=== PATIENT | male | born 1950 | race Caucasian/White ===

== ENCOUNTER → 2016-07-12 | Outpatient (CLI) | payer MEDICARE, OTHER ==
[~2016-07-12] VITALS: Ht 180.3 cm; Wt 90.6 kg
[~2016-07-12] MED LIST: ALLO300T2 PO; ASPI-556 PO; BUME1TAB12 PO; CALC0.253 PO; CARV6 PO; COLL30OI TP; DIGO125T PO; DOCU250C91 PO; DOXY100C PO; GABA-531 PO; INSLAN SQ; INSNOV SQ; INSU100C3 SQ; INSU100V12 SQ; LACHLOT TP; LEVO25TA9 PO; MEXI150 PO; MULT1CAP32 PO; PANT40TA25 PO; TAMS0.4C32 PO; VITAD1000 PO; WARF2 PO; WARF5 PO
[2016-07-12 13:44] VITALS: BP 90/60
[2016-07-12 14:47] LABS: GLUCOSE COMMENT 1 Doctor Notified; GLUCOSE,POINT OF CARE 87 MG/DL (70-110)
== END | disposition home or self-care (01) ==
LOC: HBOWC 12:23
PROVIDERS: ATTEND Emergency Medicine
DX: E11.622 Type 2 diabetes mellitus with other skin ulcer (principal); L97.821 Non-pressure chronic ulcer of other part of left lower leg limited to breakdown of skin; E11.621 Type 2 diabetes mellitus with foot ulcer; L97.411 Non-pressure chronic ulcer of right heel and midfoot limited to breakdown of skin; E11.51 Type 2 diabetes mellitus with diabetic peripheral angiopathy without gangrene; I87.2 Venous insufficiency (chronic) (peripheral); L84 Corns and callosities; L60.3 Nail dystrophy; Z87.891 Personal history of nicotine dependence
CPT/HCPCS: 82962; 97597

== ENCOUNTER → 2016-07-19 | Outpatient (CLI) | payer MEDICARE, OTHER ==
[2016-07-19 09:34] VITALS: BP 102/59
== END | disposition home or self-care (01) ==
LOC: HBOWC 08:48
PROVIDERS: ATTEND Emergency Medicine
DX: E11.621 Type 2 diabetes mellitus with foot ulcer (principal); I87.2 Venous insufficiency (chronic) (peripheral); L97.821 Non-pressure chronic ulcer of other part of left lower leg limited to breakdown of skin; L97.411 Non-pressure chronic ulcer of right heel and midfoot limited to breakdown of skin; L97.521 Non-pressure chronic ulcer of other part of left foot limited to breakdown of skin; L60.3 Nail dystrophy; L84 Corns and callosities; E11.51 Type 2 diabetes mellitus with diabetic peripheral angiopathy without gangrene; I50.9 Heart failure, unspecified; Z87.891 Personal history of nicotine dependence
CPT/HCPCS: 97597

== ENCOUNTER → 2016-08-02 | Outpatient (CLI) | payer MEDICARE, OTHER ==
[2016-08-02 08:44] VITALS: BP 105/66
== END | disposition home or self-care (01) ==
LOC: HBOWC 07:28
PROVIDERS: ATTEND Emergency Medicine
DX: E11.622 Type 2 diabetes mellitus with other skin ulcer (principal); L97.821 Non-pressure chronic ulcer of other part of left lower leg limited to breakdown of skin; E11.621 Type 2 diabetes mellitus with foot ulcer; L97.411 Non-pressure chronic ulcer of right heel and midfoot limited to breakdown of skin; I87.2 Venous insufficiency (chronic) (peripheral); E11.51 Type 2 diabetes mellitus with diabetic peripheral angiopathy without gangrene; L84 Corns and callosities; L60.3 Nail dystrophy; Z87.891 Personal history of nicotine dependence
CPT/HCPCS: 87070; 87205; 97597

== ENCOUNTER → 2016-11-02 | Outpatient (CLI) | payer MEDICARE, OTHER ==
[~2016-11-02] VITALS: Ht 180.3 cm; Wt 98.4 kg
[2016-11-02 10:30] VITALS: BP 102/76
== END | disposition home or self-care (01) ==
LOC: HBOWC 09:42
PROVIDERS: ATTEND Emergency Medicine
DX: E11.621 Type 2 diabetes mellitus with foot ulcer (principal); L97.412 Non-pressure chronic ulcer of right heel and midfoot with fat layer exposed; E11.622 Type 2 diabetes mellitus with other skin ulcer; L97.821 Non-pressure chronic ulcer of other part of left lower leg limited to breakdown of skin; E11.51 Type 2 diabetes mellitus with diabetic peripheral angiopathy without gangrene; L84 Corns and callosities; L60.3 Nail dystrophy; I50.9 Heart failure, unspecified; Z87.891 Personal history of nicotine dependence
CPT/HCPCS: 11720; 87070; 87205; 97597

== ENCOUNTER → 2016-11-09 | Outpatient (CLI) | payer MEDICARE, OTHER ==
[~2016-11-09] MED LIST changes: -ASPI-556 PO; -BUME1TAB12 PO; -CARV6 PO; -COLL30OI TP; -DIGO125T PO; -INSLAN SQ; -INSU100C3 SQ; -LACHLOT TP; +LIDOCAINE HCL 2% 5 ML JELLY TP ONE; -MEXI150 PO; -PANT40TA25 PO
[2016-11-09 09:32] VITALS: BP 97/72
== END | disposition home or self-care (01) ==
LOC: HBOWC 07:41
PROVIDERS: ATTEND Emergency Medicine
DX: E11.621 Type 2 diabetes mellitus with foot ulcer (principal); S81.802A Unspecified open wound, left lower leg, initial encounter; S81.801A Unspecified open wound, right lower leg, initial encounter; X58.XXXA Exposure to other specified factors, initial encounter; Y93.89 Activity, other specified; Y92.89 Other specified places as the place of occurrence of the external cause; Y99.8 Other external cause status

== ENCOUNTER → 2016-11-23 | Outpatient (CLI) | payer MEDICARE, OTHER ==
[~2016-11-23] MED LIST changes: -LIDOCAINE HCL 2% 5 ML JELLY TP ONE; +MUPI1OIN5 TP
[2016-11-23 08:22] VITALS: BP 96/63
== END | disposition home or self-care (01) ==
LOC: HBOWC 07:36
PROVIDERS: ATTEND Emergency Medicine
DX: E11.621 Type 2 diabetes mellitus with foot ulcer (principal); L97.521 Non-pressure chronic ulcer of other part of left foot limited to breakdown of skin; L97.412 Non-pressure chronic ulcer of right heel and midfoot with fat layer exposed; I87.2 Venous insufficiency (chronic) (peripheral); E11.622 Type 2 diabetes mellitus with other skin ulcer; L97.821 Non-pressure chronic ulcer of other part of left lower leg limited to breakdown of skin; L84 Corns and callosities; B35.1 Tinea unguium; I50.9 Heart failure, unspecified; E11.51 Type 2 diabetes mellitus with diabetic peripheral angiopathy without gangrene
CPT/HCPCS: 87070; 87205; 97597

== ENCOUNTER → 2016-11-30 | Outpatient (CLI) | payer MEDICARE, OTHER ==
[~2016-11-30] MED LIST changes: +ALLO100T PO; +ASPI-556 PO; +BUME1TAB12 PO; +BUME1TAB30 PO; +CARV3 PO; +CARV3.1231 PO; +CARV6 PO; +CEPH250 PO; +CEPH500 PO; +COLL30OI TP; +DIGO125T PO; +DOXY50CA2 PO; +INSLAN SQ; +INSU100C3 SQ; +INSU100C4 SQ; +LACHLOT TP; +MEXI150 PO; +PANT40TA25 PO; +WARF7.5 PO; +[UNRECOGNIZED DRUG - CODE] PO
[2016-11-30 09:36] VITALS: BP 101/79
== END | disposition home or self-care (01) ==
LOC: HBOWC 08:34
PROVIDERS: ATTEND Emergency Medicine
DX: E11.621 Type 2 diabetes mellitus with foot ulcer (principal); L97.412 Non-pressure chronic ulcer of right heel and midfoot with fat layer exposed; L97.521 Non-pressure chronic ulcer of other part of left foot limited to breakdown of skin; E11.51 Type 2 diabetes mellitus with diabetic peripheral angiopathy without gangrene; I87.2 Venous insufficiency (chronic) (peripheral); L84 Corns and callosities; I50.9 Heart failure, unspecified; B35.1 Tinea unguium; L60.3 Nail dystrophy; Z87.891 Personal history of nicotine dependence
CPT/HCPCS: 87070; 87205; 97597

== ENCOUNTER → 2016-12-21 | Outpatient (CLI) | payer MEDICARE, OTHER ==
[~2016-12-21] MED LIST changes: -ALLO100T PO; -ASPI-556 PO; -BUME1TAB12 PO; -BUME1TAB30 PO; -CARV3 PO; -CARV3.1231 PO; -CARV6 PO; -CEPH250 PO; -CEPH500 PO; -COLL30OI TP; -DIGO125T PO; -DOXY100C PO; -DOXY50CA2 PO; -INSLAN SQ; -INSU100C3 SQ; -INSU100C4 SQ; -LACHLOT TP; -MEXI150 PO; -PANT40TA25 PO; -WARF7.5 PO; -[UNRECOGNIZED DRUG - CODE] PO
[2016-12-21 14:10] VITALS: BP 104/74
== END | disposition home or self-care (01) ==
LOC: HBOWC 13:43
PROVIDERS: ATTEND Emergency Medicine
DX: E11.621 Type 2 diabetes mellitus with foot ulcer (principal); L97.412 Non-pressure chronic ulcer of right heel and midfoot with fat layer exposed; L97.521 Non-pressure chronic ulcer of other part of left foot limited to breakdown of skin; E11.622 Type 2 diabetes mellitus with other skin ulcer; L97.821 Non-pressure chronic ulcer of other part of left lower leg limited to breakdown of skin; L97.811 Non-pressure chronic ulcer of other part of right lower leg limited to breakdown of skin; L84 Corns and callosities; I11.0 Hypertensive heart disease with heart failure; I50.9 Heart failure, unspecified; L60.3 Nail dystrophy; Z87.891 Personal history of nicotine dependence; B35.1 Tinea unguium; E11.51 Type 2 diabetes mellitus with diabetic peripheral angiopathy without gangrene; I87.2 Venous insufficiency (chronic) (peripheral)
CPT/HCPCS: 97597

== ENCOUNTER → 2017-01-11 | Outpatient (CLI) | payer MEDICARE, OTHER ==
[2017-01-11 09:06] VITALS: BP 97/71
== END | disposition home or self-care (01) ==
LOC: HBOWC 08:45
PROVIDERS: ATTEND Emergency Medicine
DX: E11.621 Type 2 diabetes mellitus with foot ulcer (principal); L97.411 Non-pressure chronic ulcer of right heel and midfoot limited to breakdown of skin; E11.622 Type 2 diabetes mellitus with other skin ulcer; L97.821 Non-pressure chronic ulcer of other part of left lower leg limited to breakdown of skin; I11.0 Hypertensive heart disease with heart failure; I50.9 Heart failure, unspecified; E11.51 Type 2 diabetes mellitus with diabetic peripheral angiopathy without gangrene; L84 Corns and callosities; L60.3 Nail dystrophy; Z87.891 Personal history of nicotine dependence
CPT/HCPCS: 87070; 87205; 97597

== ENCOUNTER → 2017-01-23 | Outpatient (CLI) | payer MEDICARE, OTHER ==
[2017-01-23 13:32] VITALS: BP 105/78
== END | disposition home or self-care (01) ==
LOC: HBOWC 13:32
PROVIDERS: ATTEND Emergency Medicine
DX: E11.621 Type 2 diabetes mellitus with foot ulcer (principal); L97.411 Non-pressure chronic ulcer of right heel and midfoot limited to breakdown of skin; L84 Corns and callosities; I11.0 Hypertensive heart disease with heart failure; I50.9 Heart failure, unspecified; L60.3 Nail dystrophy; Z87.891 Personal history of nicotine dependence; E11.51 Type 2 diabetes mellitus with diabetic peripheral angiopathy without gangrene; B35.1 Tinea unguium
CPT/HCPCS: 97597

== ENCOUNTER → 2017-02-06 | Outpatient (CLI) | payer MEDICARE, OTHER ==
[2017-02-06 10:01] VITALS: BP 104/72
== END | disposition home or self-care (01) ==
LOC: HBOWC 09:11
PROVIDERS: ATTEND Internal Medicine
DX: E11.621 Type 2 diabetes mellitus with foot ulcer (principal); L97.411 Non-pressure chronic ulcer of right heel and midfoot limited to breakdown of skin; L97.821 Non-pressure chronic ulcer of other part of left lower leg limited to breakdown of skin; L97.811 Non-pressure chronic ulcer of other part of right lower leg limited to breakdown of skin; E11.622 Type 2 diabetes mellitus with other skin ulcer; L97.521 Non-pressure chronic ulcer of other part of left foot limited to breakdown of skin; E11.51 Type 2 diabetes mellitus with diabetic peripheral angiopathy without gangrene; I11.0 Hypertensive heart disease with heart failure; I50.9 Heart failure, unspecified; I87.2 Venous insufficiency (chronic) (peripheral); L84 Corns and callosities; L60.3 Nail dystrophy; B35.1 Tinea unguium; Z87.891 Personal history of nicotine dependence; Z98.62 Peripheral vascular angioplasty status
CPT/HCPCS: 97597

== ENCOUNTER → 2017-02-13 | Outpatient (CLI) | payer MEDICARE, OTHER ==
[~2017-02-13] MED LIST changes: +LIDOCAINE HCL 2% 5 ML JELLY ONE
[2017-02-13 10:02] VITALS: BP 112/71
== END | disposition home or self-care (01) ==
LOC: HBOWC 09:39
PROVIDERS: ATTEND Internal Medicine
DX: E11.621 Type 2 diabetes mellitus with foot ulcer (principal); L97.411 Non-pressure chronic ulcer of right heel and midfoot limited to breakdown of skin; L97.521 Non-pressure chronic ulcer of other part of left foot limited to breakdown of skin; E11.51 Type 2 diabetes mellitus with diabetic peripheral angiopathy without gangrene; L84 Corns and callosities; I11.0 Hypertensive heart disease with heart failure; I50.9 Heart failure, unspecified; L60.3 Nail dystrophy; B35.1 Tinea unguium; Z87.891 Personal history of nicotine dependence
CPT/HCPCS: 97597

== ENCOUNTER → 2017-02-27 | Outpatient (CLI) | payer MEDICARE, OTHER ==
[2017-02-27 11:22] VITALS: BP 95/74
== END | disposition home or self-care (01) ==
LOC: HBOWC 09:36
PROVIDERS: ATTEND Internal Medicine
DX: E11.621 Type 2 diabetes mellitus with foot ulcer (principal); L97.411 Non-pressure chronic ulcer of right heel and midfoot limited to breakdown of skin; E11.622 Type 2 diabetes mellitus with other skin ulcer; L97.821 Non-pressure chronic ulcer of other part of left lower leg limited to breakdown of skin; E11.51 Type 2 diabetes mellitus with diabetic peripheral angiopathy without gangrene; M24.575 Contracture, left foot; M24.574 Contracture, right foot; I87.2 Venous insufficiency (chronic) (peripheral); I11.0 Hypertensive heart disease with heart failure; I50.9 Heart failure, unspecified; L84 Corns and callosities; B35.1 Tinea unguium; Z87.891 Personal history of nicotine dependence
CPT/HCPCS: 97597